=== PATIENT | male | born 1980 | race Caucasian/White ===

== ENCOUNTER 2018-06-04 19:27 | Emergency (ER) | payer OTHER ==
[~2018-06-04] VITALS: Ht 182.9 cm; Wt 88.0 kg
[~2018-06-04 19:27] MED LIST: AMOXICILLIN500 M1 PO; FLONASE 0.05%50 MCG NS; NORCO 5-325 TA1 EACH PO
[2018-06-04] MEDS ORDERED: KEFLEX500 M2 PO (19:39)
[2018-06-04] MEDS ORDERED: NORCO 5-325 TA1 EACH PO (20:42)
[2018-06-04] MEDS ORDERED: IBUPROFEN 800800 M1 PO (20:42)
[2018-06-04] MEDS ORDERED: BACTRIM DS TAB1 EACH PO (20:42)
[2018-06-04 21:10] VITALS: BP 125/83
== END 2018-06-04 21:10 | disposition home or self-care (01) ==
LOC: M.ERS 19:27
DX: L02.31 Cutaneous abscess of buttock (principal); F17.210 Nicotine dependence, cigarettes, uncomplicated; Z88.7 Allergy status to serum and vaccine

== ENCOUNTER 2020-12-04 13:21 | Emergency (ER) | payer BC ==
[~2020-12-04] VITALS: Ht 182.9 cm; Wt 90.7 kg
[~2020-12-04 13:21] MED LIST changes: +BACTRIM DS TAB1 EACH PO; +IBUPROFEN 800800 M1 PO; +KEFLEX500 M2 PO
[2020-12-04 15:32] VITALS: BP 137/101
== END 2020-12-04 15:33 | disposition home or self-care (01) ==
LOC: M.ERS 13:21
DX: R21 Rash and other nonspecific skin eruption (principal); Z53.21 Procedure and treatment not carried out due to patient leaving prior to being seen by health care provider